=== PATIENT | female | born 1990 | race Caucasian/White ===

== ENCOUNTER 2018-08-22 00:43 | Emergency (ER) | payer BC, OTHER ==
[2018-08-22] MEDS: ACETAMINOPHEN 500 MG TAB PO (02:07)
[2018-08-22] MEDS: PROCHLORPERAZINE 10 MG INJ IV (02:07)
[2018-08-22] MEDS: DIPHENHYDRAMINE 50 MG INJ IV (02:07)
[2018-08-22] MEDS: SOD CHLORIDE 0.9% 1,000 ML IV (02:07)
[2018-08-22] MEDS: KETOROLAC 30 MG INJ IV (02:13)
== END 2018-08-22 03:27 | disposition home or self-care (01) ==
LOC: FTE 00:43
DX: R51 Headache (principal); R50.9 Fever, unspecified; R11.0 Nausea
CPT/HCPCS: 81025; 96374; 96375; 99284-25